=== PATIENT | female | born 1980 | race Caucasian/White ===

== ENCOUNTER 2025-01-15 06:42 | Emergency (ER) | payer MEDICAID ==
[~2025-01-15] VITALS: Ht 160 cm; Wt 88.0 kg
[2025-01-15 06:58] VITALS: O2SAT 97
[2025-01-15] MEDS: ACETAMINOPHEN 325MG TABLET PO ONE (07:25)
[2025-01-15] MEDS ORDERED: TOPUD PO (08:35)
[2025-01-15 08:50] VITALS: BP 130/85; PULSE 98; RESP 18; TEMP 36.9; O2SAT 97
== END 2025-01-15 08:51 | disposition home or self-care (01) ==
LOC: ER 06:42
DX: U07.1 COVID-19 (principal); H92.03 Otalgia, bilateral; E03.9 Hypothyroidism, unspecified; Z98.51 Tubal ligation status
CPT/HCPCS: 87070; 87426; 87430; 99283